=== PATIENT | female | born 1985 | race Caucasian/White ===

== ENCOUNTER 2021-04-28 14:38 | Emergency (ER) | payer OTHER | END 2021-04-28 17:13 | disposition home or self-care (01) | LOC: ER1 14:38 | DX: J06.9 Acute upper respiratory infection, unspecified (principal); F17.200 Nicotine dependence, unspecified, uncomplicated; Z90.49 Acquired absence of other specified parts of digestive tract; Z90.89 Acquired absence of other organs; Z90.710 Acquired absence of both cervix and uterus; Z20.822 Contact with and (suspected) exposure to COVID-19; Z88.1 Allergy status to other antibiotic agents; Z88.0 Allergy status to penicillin | CPT/HCPCS: 71045; 87081; 87880; 99283; U0002 ==

== ENCOUNTER 2021-07-19 21:04 | Emergency (ER) | payer OTHER | END 2021-07-20 00:52 | disposition home or self-care (01) | LOC: ER1 21:04 | DX: S93.601A Unspecified sprain of right foot, initial encounter (principal); F17.200 Nicotine dependence, unspecified, uncomplicated; W22.8XXA Striking against or struck by other objects, initial encounter; Y92.89 Other specified places as the place of occurrence of the external cause; Y99.0 Civilian activity done for income or pay | CPT/HCPCS: 73630; 99283 ==

== ENCOUNTER 2021-12-31 00:51 | Emergency (ER) | payer OTHER | END 2021-12-31 03:00 | disposition left against medical advice (07) | LOC: ER1 00:51 | DX: Z53.21 Procedure and treatment not carried out due to patient leaving prior to being seen by health care provider (principal) ==